=== PATIENT | female | born 2000 | race Caucasian/White ===

== ENCOUNTER 2021-01-07 05:41 | Emergency (ER) | payer BC, SELFPAY ==
[2021-01-07 05:43] VITALS: BP 136/84; PULSE 97; RESP 16; TEMP 35.7; O2SAT 96; BMI 34.9
--- NOTE | 2021-01-07 05:51 | RAD_ITS ---
STUDY: X-RAY CHEST REASON FOR EXAM: Female, 20 years old. Chest pain TECHNIQUE: Single AP portable view of the chest. COMPARISON: None. FINDINGS: The lungs are clear and expanded. There is no demonstrated pleural abnormality. Normal size heart. Normal mediastinum and saw. Normal visualized pulmonary arteries. Normal visualized aortic arch and descending thoracic aorta. Normal visualized thoracic spine. Normal visualized ribs, clavicles, and shoulders. There is no demonstrated abnormality of the visualized soft tissue structures of the upper abdomen. RAD/Chest 1 View (Portable) IMPRESSION: Normal x-ray examination of the chest. Electronically Signed: Florida Ruiz MD at 6:44 EDT Tel , Service support ,
--- NOTE | 2021-01-07 05:51 | EKG12_ITS ---
Test Reason : CP Blood Pressure : / mmHG Vent. Rate : 073 BPM Atrial Rate : 073 BPM P-R Int : 122 ms QRS Dur : 084 ms QT Int : 382 ms P-R-T Axes : 042 022 018 degrees QTc Int : 420 ms Somatic/Motion Artifact Sinus rhythm with Premature supraventricular complexes Confirmed by DIANA MURPHY, LIBORIO ([id number]), food expeditor ABRAHAM MCNALLY ([id number]) on 01/08/2021 12:25:26 PM Referred By: MATTHEW Confirmed By:LIBORIO ORTIZ MD
--- NOTE | 2021-01-07 05:52 | EDS_ITS ---
HPI <Dr. Kushal Bunch DO - Last Filed: 01/07/21 06:58> History of Present Illness Chief Complaint: Chest Pain Informant: patient Narrative Narrative: 20-year-old female presents for the evaluation of chest pain. Patient states that around 1800 hrs. yesterday she developed a sensation of tightness in her chest feeling like it went to her left arm. She thought maybe it was anxiety but it is not going away. She states it is beating harder and she has to focus on breathing. If she starts to think about something else she states that the sensation typically gets better. She notes that she has had a trip to [facility] where she is from recently. She also recently started Nexplanon. She rarely smokes but does vape. She denies much stimulant still having a couple coffee a day. She will occasionally use cannabis but no street drugs. PFSH <Dr. Kushal Bunch DO - Last Filed: 01/07/21 06:58> PFSH no medical history Home Medications NK 01/07/21 [History Last Taken Unknown] Allergy/AdvReac Type Severity Reaction Status Date / Time No Known Allergies Allergy Verified 01/07/21 05:42 Social History (Updated 01/07/21 @ 05:[address] Kushal Bunch DO) Smoking Status: Light Smoker (<10/day) substance use type: marijuana ROS <Dr. Kushal Bunch DO - Last Filed: 01/07/21 06:58> ROS ED Constitutional Constitutional ED: Denies chills or weight loss Eyes Eyes: Denies change in vision or diplopia ENT ENT ED: Denies ear pain, rhinorrhea or sore throat Cardiovascular Cardiovascular: Reports chest pain and palpitations; Denies orthopnea or racing heartbeat Respiratory/Chest Respiratory/Chest: Denies cough, dyspnea or orthopnea Gastrointestinal Gastrointestinal: Denies abdominal pain, diarrhea, nausea or vomiting Genitourinary Genitourinary ED: Denies dysuria, hematuria or urinary frequency Musculoskeletal Musculoskeletal: Denies arthralgias or myalgias Integumentary Denies abscess or rash Neurologic Neurologic: Denies headache(s) or weakness Psychiatric Psychiatric: Denies anxiety, depression, suicidal ideation or suicidal thoughts Endocrine Endocrinology: Denies polydipsia, polyphagia or polyuria Allergic/Immunologic Allergic/Immunologic ED: Denies mouth swelling, tongue swelling or urticaria EXAM <Dr. Kushal Bunch, DO - Last Filed: 01/07/21 06:58> Physical Exam Const Vital Signs: 01/07/21 05:43 01/07/21 05:45 01/07/21 07:51 Temperature 96.2 F L Temperature Source Temporal Pulse Rate 97 74 Respiratory Rate 16 14 Respiratory Effort Normal Respiratory Pattern Normal Blood Pressure 136/84 H Blood Pressure Mean 101 Pulse Ox 96 97 Oxygen Delivery Method Room Air Room Air Positive well nourished and well developed General Appearance ED: well developed HEENT Reports normocephalic, head/scalp atraumatic and moist mucous membranes Eyes PERRL and EOMs intact bilaterally Neck no lymphadenopathy, supple and no JVD Resp normal respiratory effort and clear to auscultation bilaterally Cardio regular rate, regular rhythm and no murmurs GI normal to inspection, nondistended, normoactive bowel sounds and non-tender Palpation: soft Back/Spine no CVA tenderness and normal ROM Extremity normal to inspection General Extremety ED: Negative for edema General Extremity: Negative for edema Neuro oriented x3 and CN's II-XII intact bilaterally Sensorium / Orientation: alert Motor Exam: strength 5/5 throughout Psych mental status grossly normal Mood & Affect: anxious; Negative for depressed or tearful Skin no rashes or lesions noted and no wounds <Dr. Josue Wall, DO - Last Filed: 01/07/21 08:21> Physical Exam Const Vital Signs: 01/07/21 05:43 01/07/21 05:45 01/07/21 07:51 Temperature 96.2 F L Temperature Source Temporal Pulse Rate 97 74 Respiratory Rate 16 14 Respiratory Effort Normal Respiratory Pattern Normal Blood Pressure 136/84 H Blood Pressure Mean 101 Pulse Ox 96 97 Oxygen Delivery Method Room Air Room Air <Dr. Kushal Bunch, DO - Last Filed: 01/07/21 06:58> Heart Score History: Slightly/Non-Suspicious ECG: Normal Age: </= 45 years Risk Factors: No Risk Factors Troponin: </= Normal Limit Score: 0 MDM <Dr. Kushal Bunch, DO - Last Filed: 01/07/21 06:58> [facility] MDM Narrative Medical decision making narrative: CBC is normal. BMP is normal. Troponin high-sensitivity negative. D-dimer however is elevated at 0.70. My interpretation of the chest x-ray is no acute process. Because of the elevated D-dimer a CTA of the chest was ordered. This time. The patient will be transferred to the daytime physician for check of CT. If negative I would anticipate a discharge. Patient has received a dose of Ativan. Lab Data Attestation: I reviewed the patient's lab results. Labs: Laboratory Results - last 24 hr 01/07/21 01/07/21 01/07/21 06:00 06:00 06:00 WBC 6.8 RBC 4.40 Hgb 13.4 Hct 40.5 MCV 92.0 MCH 30.5 MCHC 33.1 RDW Std Deviation 41.8 RDW Coeff of Ashleigh 12.4 Plt Count 280 MPV 9.1 Immature Gran % (Auto) 0.300 Neut % (Auto) 44.2 L Lymph % (Auto) 46.1 H Barnes % (Auto) 7.5 Eos % (Auto) 1.5 Baso % (Auto) 0.4 Absolute Neuts (auto) 3.0 Absolute Lymphs (auto) 3.13 Nucleated RBC % 0 D-Dimer Quant (PE/DVT) 0.70 H* Sodium 141 Potassium 3.6 Chloride 110 H Carbon Dioxide 24.0 Anion Gap 7 BUN 10 Creatinine 0.81 Estim Creat Clear Calc 86.89 Est GFR (MDRD) Af Amer 114 Est GFR (MDRD) Non-Af 94 BUN/Creatinine Ratio 12.3 Glucose 88 Calcium 9.1 Troponin I High Sens < 3.0 L Radiography Diagnostic Testing: Radiology Impression Chest X-Ray 01/07/21 05:51 IMPRESSION: Normal x-ray examination of the chest. Electronically Signed: Florida Ruiz MD at 6:44 EDT Tel , Service support , Chest CTA 01/07/21 07:14 IMPRESSION: No visualized pulmonary embolism. Borderline Cardiac enlargement. Fatty infiltration of the liver. Electronically Signed: Florida Ruiz MD at 7:50 EDT Tel , Service support , EKG Initial EKG: Attestation: I personally reviewed and interpreted this EKG as follows: Comments: EKG demonstrates a sinus rhythm at a rate of 73 with PACs noted. <Dr. Josue Wall, DO - Last Filed: 01/07/21 08:21> [facility] Narrative Medical decision making narrative: Addendum to previous dictation. Patient was signed out to me at 0700 hrs. for follow-up on CTA of the chest due to elevated D-dimer. Patient CTA is negative. Patient was informed of this. I think she is safe to be discharged home at this time. She was amenable to this plan. Lab Data Attestation: I reviewed the patient's lab results. Labs: Laboratory Results - last 24 hr 01/07/21 01/07/21 01/07/21 06:00 06:00 06:00 WBC 6.8 RBC 4.40 Hgb 13.4 Hct 40.5 MCV 92.0 MCH 30.5 MCHC 33.1 RDW Std Deviation 41.8 RDW Coeff of Ashleigh 12.4 Plt Count 280 MPV 9.1 Immature Gran % (Auto) 0.300 Neut % (Auto) 44.2 L Lymph % (Auto) 46.1 H Barnes % (Auto) 7.5 Eos % (Auto) 1.5 Baso % (Auto) 0.4 Absolute Neuts (auto) 3.0 Absolute Lymphs (auto) 3.13 Nucleated RBC % 0 D-Dimer Quant (PE/DVT) 0.70 H* Sodium 141 Potassium 3.6 Chloride 110 H Carbon Dioxide 24.0 Anion Gap 7 BUN 10 Creatinine 0.81 Estim Creat Clear Calc 86.89 Est GFR (MDRD) Af Amer 114 Est GFR (MDRD) Non-Af 94 BUN/Creatinine Ratio 12.3 Glucose 88 Calcium 9.1 Troponin I High Sens < 3.0 L Radiography Diagnostic Testing: Radiology Impression Chest X-Ray 01/07/21 05:51 IMPRESSION: Normal x-ray examination of the chest. Electronically Signed: Florida Ruiz MD at 6:44 EDT Tel , Service support , Chest CTA 01/07/21 07:14 IMPRESSION: No visualized pulmonary embolism. Borderline Cardiac enlargement. Fatty infiltration of the liver. Electronically Signed: [place] Ruiz MD at 7:50 EDT Tel , Service support , Discharge Plan Triage Chief Complaint: Chest Pain ED Provider: Kushal Bunch Dx/Rx/DC Orders Clinical Impression: Heart palpitations, Chest pain Instructions: ED Palpitations, SHARON Prescriptions: No Action NK RF: 0 Referrals: [facility] Doctor,Out of [NON-STAFF] - 1-2 Weeks
[2021-01-07] MEDS: LORazepam 2 MG/ML Syringe 0.5 MG IV (06:01)
[2021-01-07 06:06] LABS: Absolute Lymphocyte Count 3.13 X10^3/uL (0.83-4.51); Basophil# 0.03 X10^3/uL; Basophil% 0.4 % (0-1); Eosinophils% 1.5 % (0-5); Hematocrit 40.5 % (37-47); Hemoglobin 13.4 g/dL (12.0-15.0); Lymphocyte # 3.13 X10^3/ul (0.83-4.51); Lymphocyte % 46.1 % (19-41); Mean Corp Hgb Conc 33.1 g/dL (32-36); Mean Corpuscular Hgb 30.5 pg (27.0-32.0); Mean Platelet Vol. 9.1 fl (6.2-12.0); Monocyte# 0.51 X10^3/uL; Monocyte% 7.5 % (0-10); NRBC Flagged by Analyzer 0 % (0-5); Neutrophil % 44.2 % (47-70); Platelet Count 280 K/mm3 (150-450); RBC Distribution Width CV 12.4 % (11.6-14.6); RBC Distribution Width SD 41.8 fl (35.1-43.9); White Blood Count 6.8 K/mm3 (4.4-11.0)
--- NOTE | 2021-01-07 06:07 | ED.RN ---
NO OLD EKGS IN MUSE
[2021-01-07 06:25] LABS: Anion Gap 7 (5-15); BUN 10 mg/dL (7-18); BUN/Creat Ratio 12.3 RATIO (10-20); Calcium,Total 9.1 mg/dL (8.5-10.1); Chloride 110 mmol/L (98-107); Creatinine, Serum 0.81 mg/dL (0.55-1.02); EST Glomerular Filtration Rate 94 mL/min (>60); Est Glom Filt Rate - Afr Amer 114 mL/min (>60); Estimated Creatinine Clearance 86.89 ml/min; Glucose 88 mg/dL (74-106); Potassium 3.6 mmol/L (3.5-5.1); Sodium Level 141 mmol/L (136-145); Troponin-I HS < 3.0 pg/mL (3.0-53.7)
--- NOTE | 2021-01-07 07:14 | CT_ITS ---
STUDY: CTA CHEST REASON FOR EXAM: Female, 20 years old. Chest pain RADIATION DOSAGE (If Supplied By Facility): CTDIvol = ( 9.77 ) mGy, DLP = ( 559.83 ) mGycm TECHNIQUE: The examination was performed with the intravenous administration of IV 100mL Isovue-[id number]. Post-processing of the angiographic images was performed, with multiplanar reformation and 3D reconstruction. Individualized dose optimization techniques were used for this CT. COMPARISON: 01/07/2021 chest x-ray FINDINGS: Normal enhancement of the main pulmonary artery and right and left pulmonary arteries. Normal enhancement of the bilateral peripheral pulmonary arteries. There is no demonstrated pulmonary embolism. Normal thoracic aorta and visualized great vessels. There is no demonstrated aortic dissection. The visualized residual thymus. Borderline cardiac enlargement. Normal mediastinum. Normal hilar regions. Normal visualized trachea and bronchi. The lungs are well expanded. Normal pulmonary parenchyma. Normal pleura. Normal chest wall structures. Normal osseous structures. The liver is enlarged and fatty infiltrated. CT/CTA Chest W/WO Contrast IMPRESSION: No visualized pulmonary embolism. Borderline Cardiac enlargement. Fatty infiltration of the liver. Electronically Signed: [place] Ruiz MD at 7:50 EDT Tel , Service support ,
[2021-01-07 07:51] VITALS: PULSE 74; RESP 14; O2SAT 97
[2021-01-07 08:47] VITALS: BP 127/81; PULSE 74; RESP 16; O2SAT 99
== END 2021-01-07 08:47 | disposition home or self-care (01) ==
LOC: ED 06:50
PROVIDERS: Emergency Provider Emergency Medicine
DX: R00.2 Palpitations (principal); R07.9 Chest pain, unspecified; F17.200 Nicotine dependence, unspecified, uncomplicated
CPT/HCPCS: 71045; 71275; 80048; 84484; 85025; 85379; 93005; 96374; 99284; Q9967; A4216